=== PATIENT | female | born 1995 | race Caucasian/White ===

== ENCOUNTER 2018-01-22 07:03 | Emergency (ER) | payer OTHER ==
--- NOTE | 2018-01-22 07:07 | EDPHY ---
H & P Time Seen by Provider: 01/22/18 07:05 HPI/ROS: 22 yo F presents c/o cough with some mucus for about 1 and half weeks, occasional fevers no chills no sore throat no nausea no vomiting no diarrhea. Patient is a daily smoker. She states she has had pneumonia 1 time before and that she has"sensitive lungs". No hx of asthma, copd, not currently on inhalers. No leg pain, no leg swelling, no hx of dvt. Not on ocp. Review of systems As per HPI General no fever no chills no weakness HEENT no eye pain no eye discharge. No eye redness, no sore throat Respiratory pos cough and pos sob, pos wheeze Cardiac no chest pain, no peripheral edema GI no abdominal pain, no diarrhea, no constipation, no nausea, no vomiting no flank pain, no hematuria, no dysuria Musculoskeletal no myalgias, no joint pain Heme no easy bruising, no easy bleeding Endo no polyuria, no polydipsia Skin no rashes, no pruritus Neuro no syncope, no dizziness, no headaches Psych is no suicidal ideation, no homicidal ideation Past Medical/Surgical History: pneumonia Social History: smokes daily Smoking Status: Current every day smoker Physical Exam: 22 yo F Alert and oriented nontoxic appearance, tachypneic and wheezing Atraumatic normocephalic Extraocular muscles intact, anicteric Nares mild yellowish discharge Oropharynx mild erythema no tonsillar swelling no exudate no uvular deviation, tolerating own secretions Neck supple no lymphadenopathy Lungs diffuse wheezing Heart regular rate and rhythm Abdomen normoactive bowel sounds soft nontender Extremities no cyanosis clubbing or edema no calf tenderness, no swelling Skin no rash Constitutional: Initial Vital Signs Temperature (C) 37.7 C 01/22/18 07:10 Heart Rate 88 01/22/18 07:10 Respiratory Rate 18 01/22/18 07:10 Blood Pressure 123/74 H 01/22/18 07:10 O2 Sat (%) 90 L 01/22/18 07:10 O2 Delivery Mode Room Air Allergies/Adverse Reactions: No Known Allergies Allergy (Unverified 06/08/14 12:52) Home Medications: Medication Instructions Recorded NO HOME MEDS 07/16/10 Albuterol [Ventolin Hfa Inhaler] 2 puffs IH Q4 PRN #1 mdi 01/22/18 Azithromycin [Zithromax] 500 mg PO DAILY 5 Days #5 tablet 01/22/18 predniSONE 40 mg PO DAILY #10 tablet 01/22/18 Medical Decision Making - Diagnostics Imaging Results: Imaging Impressions Chest X-Ray 01/22/18 07:17 Impression: Perihilar bronchitis with bibasilar infiltrates, right greater than left. Findings were discussed with Pushpa Aceves MD at 9:03, on 01/22/2018. ED Course/Re-evaluation: Pt evaluated for shortness of breath and cough several days duration Initially pt was given a duoneb, and while she felt markedly better she continued to have diffuse wheeze. She was given Prednisone 60 mg and started on a continuous nebulizer treatment with Albuterol 7.5 mg. Again she felt markedly improved but continued to have some vague wheeze and oxygen saturation in high 80s. A line was started, IV fluids and magnesium 2gm for bronchospsam. CXR revealed bibasilar infiltrates. She was then given Ceftriaxone 2gm IVPB and Azithro 500 mg po for CAP. Imp Pneumonia with bronchospasm Plan Her saturations hovered between 88-92, and she continued to endorse feeling well. I reccomended admission for continued treatments and oxygen support, she refused but agreed to return if she did not feel well or has worsening of her breathing. Home with rx for albuterol, prednisone burst, and azithro 500 x 5 days. - Data Points Laboratory Results: Laboratory Results 01/22/18 08:20 01/22/18 08:20 01/22/18 01/22/18 08:20 08:20 WBC 6.04 10^3/uL 10^3/uL (3.80-9.50) RBC 4.94 10^6/uL 10^6/uL (4.18-5.33) Hgb 14.5 g/dL g/dL (12.6-16.3) Hct 43.8 % % (38.0-47.0) MCV 88.7 fL fL (81.5-99.8) MCH 29.4 pg pg (27.9-34.1) MCHC 33.1 g/dL g/dL (32.4-36.7) RDW 13.2 % % (11.5-15.2) Plt Count 204 10^3/uL 10^3/uL (150-400) MPV 8.7 fL fL (8.7-11.7) Neut % (Auto) 29.3 % L % (39.3-74.2) Lymph % (Auto) 45.7 % H % (15.0-45.0) [place] % (Auto) 6.8 % % (4.5-13.0) Eos % (Auto) 17.2 % H % (0.6-7.6) Baso % (Auto) 0.8 % % (0.3-1.7) Nucleat RBC Rel Count 0.0 % % (0.0-0.2) Absolute Neuts (auto) 1.77 10^3/uL 10^3/uL (1.70-6.50) Absolute Lymphs (auto) 2.76 10^3/uL 10^3/uL (1.00-3.00) Absolute Monos (auto) 0.41 10^3/uL 10^3/uL (0.30-0.80) Absolute Eos (auto) 1.04 10^3/uL H 10^3/uL (0.03-0.40) Absolute Basos (auto) 0.05 10^3/uL 10^3/uL (0.02-0.10) Absolute Nucleated RBC 0.00 10^3/uL 10^3/uL (0-0.01) Immature Gran % 0.2 % % (0.0-1.1) Immature Gran # 0.01 10^3/uL 10^3/uL (0.00-0.10) Sodium 141 mEq/L mEq/L (135-145) Potassium 3.2 mEq/L L mEq/L (3.5-5.2) Chloride 104 mEq/L mEq/L (97-110) Carbon Dioxide 27 mEq/l mEq/l (22-31) Anion Gap 10 mEq/L mEq/L (8-16) BUN 8 mg/dL mg/dL (7-23) Creatinine 0.7 mg/dL mg/dL (0.6-1.0) Estimated GFR > 60 Glucose 105 mg/dL H mg/dL (70-100) Calcium 9.3 mg/dL mg/dL (8.5-10.4) Magnesium 2.1 mg/dL mg/dL (1.6-2.3) Medications Given: Discontinued Medications Albuterol (Proventil Neb) 9 ml IH EDNOW ONE Stop: 01/22/18 07:37 Last Admin: 01/22/18 07:46 Dose: 9 ml Albuterol/Ipratropium (Duoneb) 3 ml IH EDNOW ONE Stop: 01/22/18 07:09 Last Admin: 01/22/18 07:16 Dose: 3 ml Azithromycin (Zithromax) 500 mg PO EDNOW ONE PRN Reason: Protocol Stop: 01/22/18 09:16 Last Admin: 01/22/18 09:32 Dose: 500 mg Magnesium Sulfate (Magnesium Sulf 2 Gm (Premix)) 50 mls @ 50 mls/hr IV EDNOW ONE Stop: 01/22/18 09:11 Last Admin: 01/22/18 08:30 Dose: 50 mls Sodium Chloride (Ns) 1,000 mls @ 0 mls/hr IV ONCE ONE PRN Reason: Wide Open Stop: 01/22/18 08:14 Last Admin: 01/22/18 08:19 Dose: 1,000 mls Ceftriaxone Sodium 2 gm/ (Sterile Water) 20 mls @ 300 mls/hr IV EDNOW ONE PRN Reason: Protocol Stop: 01/22/18 09:18 Last Admin: 01/22/18 09:32 Dose: 20 mls Sodium Chloride (Ns) 1,000 mls @ 0 mls/hr IV ONCE ONE PRN Reason: Wide Open Stop: 01/22/18 09:18 Last Admin: 01/22/18 09:33 Dose: 1,000 mls Prednisone (Prednisone) 60 mg PO EDNOW ONE Stop: 01/22/18 07:36 Last Admin: 01/22/18 07:43 Dose: 60 mg Departure - Departure Disposition: Home, Routine, Self-Care Clinical Impression: Bronchospasm, Pneumonia Condition: Good Referrals: NONE *PRIMARY CARE P,. [Primary Care Provider] - As per Instructions [facility],. [Clinic] - As per Instructions [facility] [Provider Group] - As per Instructions Prescriptions: Albuterol [Ventolin Hfa Inhaler] 2 puffs IH Q4 PRN #1 mdi PRN Reason: Cough, Moderate Azithromycin [Zithromax] 500 mg PO DAILY 5 Days #5 tablet predniSONE 40 mg PO DAILY #10 tablet
[2018-01-22] MEDS ORDERED: IPRATROPIUM/ALBUTEROL 3 ML DEYVIAL IH ONE (07:08)
[2018-01-22] MEDS ORDERED: predniSONE 20 MG TAB PO ONE (07:35)
[2018-01-22] MEDS ORDERED: ALBUTEROL 3 ML DEYVIAL IH ONE (07:36)
[2018-01-22] MEDS ORDERED: ALBUTEROL 3 ML DEYVIAL ONE (07:39)
[2018-01-22] MEDS ORDERED: MAGNESIUM SULF 2 GM/WATER 50 ML IV ONE (08:12)
[2018-01-22] MEDS ORDERED: NS 1,000 ML IV ONE ×2 (08:13→09:17)
[2018-01-22 08:26] LABS: PLATELET COUNT 204 10^3/uL (150-400)
[2018-01-22] MEDS ORDERED: AZITHROMYCIN 250 MG TAB PO ONE (09:15)
[2018-01-22] MEDS ORDERED: cefTRIAXone 2 GM in STERILE WATER INJ 20 ML IV ONE (09:15)
[2018-01-22] MEDS ORDERED: cefTRIAXone 2 GM VIAL ONE (09:24)
[2018-01-22 10:31] VITALS: BP 110/62
== END 2018-01-22 10:30 | disposition home or self-care (01) ==
LOC: CED 07:03
DX: J18.9 Pneumonia, unspecified organism (principal); J98.01 Acute bronchospasm; F17.200 Nicotine dependence, unspecified, uncomplicated; E86.9 Volume depletion, unspecified
CPT/HCPCS: 71046-PO; 80048-PO; 83735-PO; 85025-PO; 96365; J0696; J3475; J7512; J7613

== ENCOUNTER 2018-02-11 22:05 | Inpatient (IN) | payer OTHER ==
[2018-02-11] MEDS ORDERED: IPRATROPIUM/ALBUTEROL 3 ML DEYVIAL IH ONE (22:23)
[2018-02-11] MEDS ORDERED: predniSONE 20 MG TAB PO ONE (22:26)
[2018-02-11] MEDS ORDERED: ALBUTEROL 3 ML DEYVIAL IH ONE (22:28)
--- NOTE | 2018-02-11 22:34 | EDPHY ---
H & P Smoking Status: Current every day smoker Time Seen by Provider: 02/11/18 22:22 HPI/ROS: This patient was seen and treated here for community-acquired pneumonia with bronchospasm on 01/22/2018 discharge with Zithromax prednisone and albuterol after being treated here with IV ceftriaxone for bibasilar infiltrates. She reports resolution of her fever improvement in her symptoms but without complete resolution of her wheezing which significantly worsened over the past 24 hr resulting in requirement of frequent albuterol inhaler use every 4 hr with partial improvement but without relief of ongoing dyspnea and wheezing. Her mother brought her in by private vehicle for further evaluation of her symptoms. ROS: No fevers or chills since the 1st few days of antibiotics that she completed on January 26. No fatigue. HEENT: No URI symptoms. No sore throat. Pulmonary: No pleuritic pain. No hemoptysis. No significant coughing. No respiratory distress. Cardiovascular: No chest pain. No lightheadedness. No leg swelling or pain. Integumentary: No skin rash. No diaphoresis. GI: No nausea vomiting 10 point ROS is otherwise negative. (Jorge Ruano) Past Medical/Surgical History: Asthma [id number] 01/22/2018 (Jorge Ruano) Physical Exam: General Appearance: Alert, no distress. Eyes: Pupils equal and round no pallor or injection. ENT, Mouth: Mucous membranes moist. Respiratory: Bilateral wheezing throughout all lung hemphill Cardiovascular: Mild tachycardia with no murmur gallop rub Gastrointestinal: Abdomen is soft and nontender, no masses, bowel sounds normal. Neurological: GCS of 15 Skin: Warm and dry, no rashes. Musculoskeletal: Neck is supple nontender. Extremities are symmetrical, full range of motion. No calf swelling or tenderness Psychiatric: Mood and affect are normal DIFFERENTIAL DIAGNOSIS: After history and physical exam differential diagnosis was considered for asthma exacerbation, viral URI with RAD, bronchitis (Jorge Ruano) Constitutional: Initial Vital Signs Temperature (C) 97.9 F 02/11/18 22:18 Heart Rate 106 H 02/11/18 22:18 Respiratory Rate 18 02/11/18 22:18 Blood Pressure 108/70 02/11/18 22:18 O2 Sat (%) 96 02/11/18 22:18 O2 Delivery Mode Nasal Cannula O2 (L/minute) 2 Allergies/Adverse Reactions: No Known Allergies Allergy (Unverified 06/08/14 12:52) Home Medications: Medication Instructions Recorded Albuterol [Ventolin Hfa Inhaler] 2 puffs IH Q4 PRN #1 mdi 01/22/18 Albuterol Hfa Anes Only [Proair 2 puffs IH Q4 PRN #1 mdi 02/11/18 Hfa Icu (*)] Fluticasone Hfa 220 Mcg [Flovent 2 puffs IH DAILY #1 mdi 02/11/18 220 MCG Hfa MDI (*)] predniSONE 60 mg PO DAILY #12 tab 02/11/18 Amoxicillin/Clavulanate Pot 875 mg PO BID #14 tab 02/12/18 [Augmentin 875 MG TAB (*)] MDM/Departure - MDM Imaging Results: Imaging Impressions Chest X-Ray 02/11/18 22:54 Impression: Unchanged right middle greater than left basilar/lingular pneumonias. Medications Given: Discontinued Medications Albuterol (Proventil Neb) 3 ml IH EDNOW ONE Stop: 02/11/18 22:29 Last Admin: 02/11/18 22:31 Dose: 3 ml Albuterol/Ipratropium (Duoneb) 3 ml IH EDNOW ONE Stop: 02/11/18 22:24 Last Admin: 02/11/18 22:24 Dose: 3 ml Amoxicillin/Clavulanate Potassium (Augmentin 875mg) 875 mg PO EDNOW ONE PRN Reason: Protocol Stop: 02/12/18 00:10 Last Admin: 02/12/18 00:15 Dose: 875 mg Sodium Chloride (Ns) 1,000 mls @ 0 mls/hr IV ONCE ONE; Wide Open PRN Reason: Protocol Stop: 02/11/18 22:54 Last Admin: 02/11/18 23:00 Dose: 1,000 mls Levalbuterol (Xopenex 1.25mg Neb) 1.25 mg IH EDNOW ONE Stop: 02/11/18 22:55 Last Admin: 02/11/18 23:01 Dose: 1.25 mg Prednisone (Prednisone) 60 mg PO EDNOW ONE Stop: 02/11/18 22:27 Last Admin: 02/11/18 22:30 Dose: 60 mg ED Course/Re-evaluation: DuoNeb followed by albuterol neb, prednisone 60 mg p.o. At 10:55 p.m. This patient is tachycardic in the 120s with an O2 sat of 87% after 2 nebs. She feels subjective improvement but given recent pneumonia with current findings will proceed with IV, labs, normal saline bolus and chest x- ray. Patient understands the plan. She is comfortable with treatment plan. I discussed this case with oncoming emergency physician physician Dr. Dos Santos at 11:00 p.m. (Jorge Ruano) The patient's chest x-ray was read by Radiology as unchanged right middle greater than left basilar/lingular pneumonias. Her oxygen level drifted down to 80% on room air. After lengthy discussion reviewing the benefits of admission and dangers of leaving against medical advice, the patient refused admission only giving the reason that she wanted to go home to sleep in her own bed and surmised that oral antibiotics would improve her symptoms. The patient was offered and also declined a CTPA. She was given an oral dose of Augmentin and Rx for Augmentin. (Dr. Ruano, the prior ER provider, also wrote Rx for Prednisone, Fluticasone, and Albuterol). After talking with her mother at bedside, the patient is now agreeing to admission but will only transfer by private vehicle driven by her mother. She will be given an oxygen tank for transport and has been told she is absolutely NOT TO SMOKE. Report given to Dr. Alcala. (Jada Dos Santos) - Depart Disposition: Home, Routine, Self-Care Clinical Impression: Hypoxemia Asthma exacerbation Qualifiers: Asthma severity: moderate Asthma persistence: unspecified Qualified Code(s): J45.901 - Unspecified asthma with (acute) exacerbation Pneumonia Qualifiers: Pneumonia type: due to unspecified organism Laterality: right Lung location: lower lobe of lung Qualified Code(s): J18.1 - Lobar pneumonia, unspecified organism Condition: Good
[2018-02-11] MEDS ORDERED: NS 1,000 ML IV ONE (22:53)
[2018-02-11] MEDS ORDERED: LEVALBUTEROL 1.25 MG/3 ML DEYVIAL IH ONE (22:54)
[2018-02-11 23:10] LABS: PLATELET COUNT 231 10^3/uL (150-400)
[2018-02-12] MEDS ORDERED: AMOXICILLIN/CLAVULANATE POT 875/125 MG TAB PO ONE (00:09)
[2018-02-12] MEDS ORDERED: ONDANSETRON DISINTEGRATING 4 MG TAB PO PRN (01:02)
[2018-02-12] MEDS ORDERED: ALBUTEROL 3 ML DEYVIAL IH PRN (01:02)
[2018-02-12] MEDS ORDERED: ACETAMINOPHEN 325 MG TAB PO PRN (01:02)
[2018-02-12] MEDS ORDERED: ONDANSETRON 4 MG/2 ML VIAL IVP PRN (01:02)
--- NOTE | 2018-02-12 04:11 | PDGENHP ---
History and Physical - Chief Complaint Shortness of breath - History of Present Illness 22 yo F w/ suspected asthma presents w/ SOB. Patient was diagnosed with pneumonia in January and treated with azithromycin course, which she finished. She initially felt better but over the last 2 days began to note dyspnea and increased cough. Her cough was occasionally productive of yellow sputum. She denies fever and chills. She has continued to smoke cigarettes throughout the last month, although she has tried to cut down. She has not been formally diagnosed with asthma but this is suspected. Her mom and sister both have asthma. She was noted to have significant wheeze on admission as well and moderate hypoxia. She is being admitted for further care. History Information - Allergies/Home Medication List Allergies/Adverse Reactions: No Known Allergies Allergy (Unverified 06/08/14 12:52) I have personally reviewed and updated: family history, medical history - Past Medical History asthma - Surgical History Reports: no pertinent surgical hx - Family History Positive for: asthma (Mom and sister) - Social History Smoking Status: Current every day smoker Review of Systems Review of Systems: ROS: 10pt was reviewed & negative except for what was stated in HPI & below Physical Exam Physical Exam: Temp Pulse Resp BP Pulse Ox 37 C 98 18 120/68 94 02/12/18 01:56 02/12/18 02:30 02/12/18 02:30 02/12/18 01:56 02/12/18 02:30 O2 (L/minute) 4 Constitutional: no apparent distress, not in pain Eyes: PERRL, EOMI Ears, Nose, Mouth, Throat: moist mucous membranes, no oral mucosal ulcers Cardiovascular: regular rate and rhythym, no murmur, rub, or gallop Respiratory: no respiratory distress, reduced air movement, expiratory wheeze ( Diffuse) Gastrointestinal: normoactive bowel sounds, soft, non-tender abdomen Skin: warm, normal color Musculoskeletal: full muscle strength, no muscle tenderness Neurologic: AAOx3, CN II-XII Intact Psychiatric: interacting appropriately, not anxious Lab Data & Imaging Review 02/11/18 23:00 02/11/18 23:00 WBC 8.57 10^3/uL (3.80-9.50) 02/11/18 23:00 RBC 5.11 10^6/uL (4.18-5.33) 02/11/18 23:00 Hgb 14.9 g/dL (12.6-16.3) 02/11/18 23:00 Hct 45.5 % (38.0-47.0) 02/11/18 23:00 MCV 89.0 fL (81.5-99.8) 02/11/18 23:00 MCH 29.2 pg (27.9-34.1) 02/11/18 23:00 MCHC 32.7 g/dL (32.4-36.7) 02/11/18 23:00 RDW 13.2 % (11.5-15.2) 02/11/18 23:00 Plt Count 231 10^3/uL (150-400) 02/11/18 23:00 MPV 8.9 fL (8.7-11.7) 02/11/18 23:00 Neut % (Auto) 41.5 % (39.3-74.2) 02/11/18 23:00 Lymph % (Auto) 32.3 % (15.0-45.0) 02/11/18 23:00 [place] % (Auto) 5.6 % (4.5-13.0) 02/11/18 23:00 Eos % (Auto) 19.5 % (0.6-7.6) H 02/11/18 23:00 Baso % (Auto) 0.9 % (0.3-1.7) 02/11/18 23:00 Nucleat RBC Rel Count 0.0 % (0.0-0.2) 02/11/18 23:00 Absolute Neuts (auto) 3.55 10^3/uL (1.70-6.50) 02/11/18 23:00 Absolute Lymphs (auto) 2.77 10^3/uL (1.00-3.00) 02/11/18 23:00 Absolute Monos (auto) 0.48 10^3/uL (0.30-0.80) 02/11/18 23:00 Absolute Eos (auto) 1.67 10^3/uL (0.03-0.40) H 02/11/18 23:00 Absolute Basos (auto) 0.08 10^3/uL (0.02-0.10) 02/11/18 23:00 Absolute Nucleated RBC 0.00 10^3/uL (0-0.01) 02/11/18 23:00 Immature Gran % 0.2 % (0.0-1.1) 02/11/18 23:00 Immature Gran # 0.02 10^3/uL (0.00-0.10) 02/11/18 23:00 D-Dimer < 0.27 ug/mLFEU (0.00-0.50) 02/11/18 23:00 Sodium 138 mEq/L (135-145) 02/11/18 23:00 Potassium 3.8 mEq/L (3.5-5.2) 02/11/18 23:00 Chloride 103 mEq/L (97-110) 02/11/18 23:00 Carbon Dioxide 28 mEq/l (22-31) 02/11/18 23:00 Anion Gap 7 mEq/L (8-16) L 02/11/18 23:00 BUN 9 mg/dL (7-23) 02/11/18 23:00 Creatinine 0.6 mg/dL (0.6-1.0) 02/11/18 23:00 Estimated GFR > 60 02/11/18 23:00 Glucose 147 mg/dL (70-100) H 02/11/18 23:00 Calcium 9.3 mg/dL (8.5-10.4) 02/11/18 23:00 Procalcitonin 0.04 ng/mL (0.02-0.10) 02/11/18 23:00 Imaging Review: Imaging Impressions Chest X-Ray 02/11/18 22:54 Impression: Unchanged right middle greater than left basilar/lingular pneumonias. Visualized and Interpreted Chest x-ray results: Yes Chest X-Ray results: infiltrate Assessment & Plan Assessment: 22 yo F w/ suspected asthma presents with exacerbation. Plan: 1. Suspected asthma w/ acute vs. subacute exacerbation - Patient initially diagnosed with pneumonia in January and treated with azithromycin. She felt better but over the last two days experienced progressive dyspnea. Her evaluation is consistent with acute vs. subacute asthma exacerbation. Her CXR shows unchanged infiltrates, but I do not suspect these represent active infection noting normal WBC, afebrile, and negative procalcitonin. More likely her continued tobacco use and inconsistent asthma therapy has led to recurrent exacerbation. - Admit for observation - Prednisone 40 mg qD, albuterol QID [facility] + q2h PRN - Observe off of antibiotics - I recommended formal PFTs and tobacco cessation 2. AHRF - Currently requiring 4 L/min O2, most likely 2/2 above. - Acute treatment as above, wean O2 as able Diet - Regular Code - Full Ppx - Low risk Dispo - Admit under observation status
[2018-02-12 05:26] LABS: PLATELET COUNT 261 10^3/uL (150-400)
[2018-02-12] MEDS: ALBUTEROL 3 ML DEYVIAL IH SCH ×4 (05:33→21:42)
[2018-02-12] MEDS: predniSONE 20 MG TAB PO SCH (09:15)
[2018-02-12] MEDS ORDERED: PNEUMOCOCCAL 0.5ML VACCINE VIAL IM ONE (09:26)
--- NOTE | 2018-02-12 09:27 | ASMTCASEMG ---
Living Arrangements What is your living Answers: Alone arrangement? Who do you live with? Type Of Residence What kind of residence do Answers: Dormitory you live in? Discharge Plan Comments Coordination Status Comments Notes: Pt is a 30 y/o female admitted for shortness of breath. Pt will most likely d/c independent when medically stable. No therapies ordered at this time. CM available for changes. Plan: Independent Date Signed: 02/12/2018 09:27 AM Electronically Signed By:RICHARD Hawley
--- NOTE | 2018-02-12 18:32 | HOSPPROG ---
Hospitalist Progress Note Assessment/Plan: ADMISSION DAY EVENING HOSPITALIST ROUNDS The patient through the day has continued to be fairly dyspneic at rest, take still using 5 L of oxygen. She still has poor air movement on examination. I spent approximately 40 min with the patient and family at bedside reviewing her diagnosis of asthma, the mechanisms of asthma, the triggers for asthma, the range of time courses of asthma exacerbations and the range of intermittent through persistent asthma, as well as the treatment strategies including the effects and side effects of all the medicines. Also review prevention measures in detail. This is essentially the patient's 1st diagnosed episode of asthma, and so while she has some background knowledge of asthma she really new very little of its nature, monitoring or management. I answered of all of her questions in detail. It will be important to give her more education going forward as she will be needing to doing a lot of self management as all asthmatics due. This at least gives her a start on that process. Notably the patient does describe long history of exertional dyspnea that sounds typical of exercise-induced asthma. She just dealt with this by decreasing exercise over time and never sought any evaluation or care. We did discuss that she can probably increase her activity level comfortably in safely if she manages the exercise-induced asthma appropriately. For now will continue on with oral steroids and aggressive bronchodilator therapy here until she is more stable and can leave the hospital. This may take anywhere from 1-4 days though difficult to tell as this is her 1st real flare-up of acute asthma like this. He also it is notable that this is an ongoing episode after previous hospitalization that had probably decrease in therapy too quickly for overactive reasons. We also did talk about prevention measures and she did get a pneumonia vaccine today. Objective: Vital Signs Temp Pulse Resp BP Pulse Ox 36.6 C 87 15 105/62 93 02/12/18 15:24 02/12/18 17:01 02/12/18 17:01 02/12/18 15:24 02/12/18 17:01 Microbiology 02/12/18 02:20 Respiratory Panel (PCR) - Final Nasal, Sinus - Anaerobic Tube/Swab No Organism Detected Laboratory Results 02/12/18 04:40 02/12/18 04:40 02/11/18 02/12/18 02/13/18 06:59 06:59 06:59 Intake Total 1000 Balance 1000 ICD10 Worksheet Patient Problems: Problems Problem Status Onset Asthma exacerbation Acute Hypoxemia Acute Pneumonia Acute
[2018-02-13] MEDS: ALBUTEROL 3 ML DEYVIAL IH SCH ×2 (05:51→11:20)
[2018-02-13] MEDS: predniSONE 20 MG TAB PO SCH (09:45)
--- NOTE | 2018-02-13 14:23 | PDMN ---
Medical Necessity Medical necessity: MCG M60 asthma A-1 day: Dyspnea, increased cough, hypoxia req 5L O2, poor air movement, further monitoring, tx needed > 2 midnights
[2018-02-13] MEDS ORDERED: BUDESONIDE 180 MCG MDI IH SCH (14:45)
--- NOTE | 2018-02-13 14:46 | PDDCSUM ---
Discharge Summary Discharge Summary: DISCHARGE DIAGNOSES: -acute asthma exacerbation -Acute hypoxemic respiratory failure -suspect she has some chronic exertional asthma that has been not evaluated or treated HOSPITAL COURSE SUMMARY: This patient started with her 1st ever asthma exacerbation a couple of weeks ago when she presented with pneumonia. She was treated with some antibiotic and some prednisone and inhaled steroid and had good symptomatic relief. However as the steroid wean away her symptoms became severe and she presented back here in some respiratory distress and with acute hypoxemic respiratory failure requiring 5-6 L of oxygen. It took a couple of days to get this quite a down with reason high doses of oral steroid but at this point she is off of oxygen and feeling notably better, able to walk much better. Reviewing her history it sounds like she probably has had some exertional asthma in the past over a number of years that she is not treated or had evaluated. At this time there was not evidence of any active ongoing bacterial infection and she was not treated with antibiotics at this time. She was given extensive education regarding the nature of asthma including its physiology, triggers, treatment paradymes, the usefulness of the different medications, vaccines, etc. She was educated on proper use of the meter dose inhalers PENDING TEST RESULTS: None MEDICATION CHANGES: Prednisone taper starting currently at 20 mg daily and a tapering off over period of 2 weeks Pulmicort inhaler added Antibiotics stopped FOLLOW-UP PLAN: She is arranging to make an appointment with 1 of the pulmonologists in our system and I recommended she see them within 1-2 weeks Greater than 35 minutes bedside and care coordination time today
[2018-02-13 15:27] VITALS: BP 117/82
== END 2018-02-13 17:23 | disposition home or self-care (01) | DRG 202 ==
LOC: CED 22:05 → OBSVTOIN 02-12 01:02 → CEDHOLD 02-12 01:02 → F3E 02-12 01:52
PROVIDERS: ADMIT Student in an Organized Health Care Education/Training Program; ATTEND Internal Medicine
DX: J45.901 Unspecified asthma with (acute) exacerbation (principal); J96.01 Acute respiratory failure with hypoxia; F17.210 Nicotine dependence, cigarettes, uncomplicated; Z87.01 Personal history of pneumonia (recurrent); Z23 Encounter for immunization
CPT/HCPCS: 71046-PO; 80048-PO; 85025-PO; 85378-PO; G0009; J7512; J7613